=== PATIENT | female | born 1950 | race Caucasian/White ===

== ENCOUNTER 2020-12-24 12:56 | Outpatient (CLI) | payer MEDICARE, MEDICAID, SELFPAY ==
--- NOTE | ~2020-12-24 | CT_ITS ---
EXAMINATION: CTA brain EXAM DATE: 12/24/2020 14:10 INDICATION: I61.9 - Nontraumatic intracerebral hemorrhage, unspecified. TECHNIQUE: Noncontrast head CT. Spiral CT angiogram cerebral arteries performed with intravenous in jection of 100 mL Omnipaque 350. Axial, coronal and sagittal images reviewed. Additional reformatted images created on dedicated 3-D workstation. The dose-length product (DLP) for this examination was 1016.50 mGy-cm. The exposure was tailored according to patient size, and iterative reconstruction (ASIR) was used as additional dose reduction technique. There is no prior study for comparison. FINDINGS: No intracranial carotid stenosis. There is no distal carotid or vertebral basilar arteria l dissection or fibromuscular dysplasia. There are no cerebral artery aneurysms. There is symmetric c erebral artery arborization. The sagittal, transverse and sigmoid sinuses enhance normally, no venous sinus thrombosis. Internal cerebral veins also enhance normally. There is moderate size old right occipital lobe infarction. Punctate old left basal ganglia lacunar i nfarction. Mild cerebral atrophy and microangiopathy. There is no acute intraparenchymal hemorrhage. No evidence of intraparenchymal brain mass lesion. No evidence of acute infarction. Bilateral roxy ract surgery. There is no mass effect or midline shift. There is no obstructive hydrocephalus suspect ed. There are no extra-axial collections. IMPRESSION: 1. No acute intracranial findings or cerebral artery aneurysm. 2. 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 3. Mild atrophy and microangiopathy. Reviewed, dictated and finalized at location B.
[2020-12-24 14:04] LABS: Estimated Glomerular Filt Rate 55
== END 2020-12-24 12:57 | disposition home or self-care (01) ==
PROVIDERS: PCP Internal Medicine; Visit Provider Psychiatry & Neurology Neurology
DX: I61.9 Nontraumatic intracerebral hemorrhage, unspecified (principal); I73.9 Peripheral vascular disease, unspecified
CPT/HCPCS: 70496; Q9967